=== PATIENT | female | born 1975 | race Caucasian/White ===

== ENCOUNTER 2018-07-12 17:33 | Emergency (ER) | payer OTHER ==
--- NOTE | 2018-07-12 18:26 | RAD ---
Exam: XR Forearm Lt 2 View STANDARD HISTORY: Trauma. Patient fell one week ago and injured left arm. Finger numbness. COMPARISON: None FINDINGS: No acute fracture, dislocation, or other acute osseous abnormality is identified. IMPRESSION: No acute osseous abnormality is identified.
== END 2018-07-12 18:55 | disposition home or self-care (01) ==
LOC: ERS 17:33
DX: S60.212A Contusion of left wrist, initial encounter (principal); G56.22 Lesion of ulnar nerve, left upper limb; F32.9 Major depressive disorder, single episode, unspecified; I10 Essential (primary) hypertension; Z79.899 Other long term (current) drug therapy; W22.8XXA Striking against or struck by other objects, initial encounter

== ENCOUNTER 2020-10-01 07:43 | Emergency (ER) | payer OTHER, SELFPAY ==
[2020-10-01] MEDS ORDERED: hydrOXYzine 25 MG TAB ONE (08:16)
== END 2020-10-01 08:52 | disposition home or self-care (01) ==
LOC: ERS 07:43
DX: F41.9 Anxiety disorder, unspecified (principal); Z60.9 Problem related to social environment, unspecified; I10 Essential (primary) hypertension; F17.210 Nicotine dependence, cigarettes, uncomplicated
CPT/HCPCS: 99283